=== PATIENT | female | born 1985 | race Caucasian/White ===

== ENCOUNTER → 2016-10-14 08:06 | Outpatient (CLI) | payer OTHER | END | disposition home or self-care (01) | LOC: D.NM 08:06 | DX: R10.9 Unspecified abdominal pain (principal) ==

== ENCOUNTER → 2016-12-13 07:41 | Outpatient (CLI) | payer OTHER ==
[2016-12-16 14:43] LABS: ANTIGLIADIN IGA 4 units (0-19); ANTIGLIADIN IGG 40 units (0-19)
[2016-12-17 07:22] LABS: ENDOMYSIAL ANTIBODY IGA Positive (Negative)
== END | disposition home or self-care (01) ==
LOC: D.LAB 07:41
PROVIDERS: Internal Medicine Gastroenterology
DX: R19.7 Diarrhea, unspecified (principal); D72.820 Lymphocytosis (symptomatic)